=== PATIENT | female | born 2000 | race Hispanic/Latino ===

== ENCOUNTER → 2024-05-12 | Outpatient (CLI) | payer SELFPAY | LOC: M RAD 12:29 | PROVIDERS: ATTEND Physician Assistant Medical | DX: R10.9 Unspecified abdominal pain (principal) ==

== ENCOUNTER 2024-06-15 07:01 | Day surgery (SDC) | payer MEDICAID, SELFPAY ==
[~2024-06-15] VITALS: Ht 154.9 cm; Wt 56.0 kg
[2024-06-15 08:36] LABS: BASO % 0.3 % (0.0-1.0); EOS # 0.1 10^3/uL (0.0-0.5); EOS % 0.7 % (0.0-3.0); HEMATOCRIT 38.5 % (36.0-47.0); LYMPH # 1.8 10^3/uL (1.5-5.0); LYMPH % 23.4 % (24.0-44.0); MEAN CORPUSCULAR HEMOGLOBIN 29.9 pg (27.0-33.0); MEAN CORPUSCULAR HGB CONC 33.8 g/dl (32.0-36.5); MEAN CORPUSCULAR VOLUME 88.5 fl (80.0-96.0); MONO # 0.6 10^3/uL (0.0-0.8); MONO % 8.2 % (2.0-8.0); NEUTROPHILS # 5.1 10^3/uL (1.5-8.5); PLATELET COUNT, AUTOMATED 346 10^3/uL (150-450); RED BLOOD COUNT 4.35 10^6/uL (4.00-5.40); WHITE BLOOD COUNT 7.7 10^3/uL (4.0-10.0)
[2024-06-15] MEDS: MORPHINE 2 MG/ML 1ML VIAL IV ONE (08:36)
[2024-06-15] MEDS ORDERED: HOME MED LIST COMPLETE! XX SCH (09:50)
[2024-06-15] MEDS ORDERED: MIDAZOLAM INJ 2MG/2ML VIAL As Ordered ONE (11:40)
[2024-06-15] MEDS ORDERED: KETOROLAC 60MG 2ML VIAL As Ordered ONE (11:40)
[2024-06-15] MEDS ORDERED: fentaNYL 100 MCG/2 ML INJECTION As Ordered ONE (11:40)
[2024-06-15] MEDS ORDERED: ONDANSETRON 4MG 2ML VIAL As Ordered ONE (11:40)
[2024-06-15] MEDS ORDERED: LIDOCAINE 2% 100MG/5ML SDV (FOR ANES.) As Ordered ONE (11:40)
[2024-06-15] MEDS ORDERED: propofoL 200 MG/20 ML VIAL As Ordered ONE (11:40)
[2024-06-15] MEDS ORDERED: ROCURONIUM BROMIDE 50MG/5ML VIAL As Ordered ONE (11:40)
[2024-06-15] MEDS ORDERED: SUGAMMADEX SODIUM 500 MG/5 ML VIAL (BRIDION) As Ordered ONE (11:40)
[2024-06-15] MEDS ORDERED: fentaNYL 100 MCG/2 ML INJECTION IV PRN (14:00)
[2024-06-15] MEDS ORDERED: oxyCODONE 5MG TAB PO PRN (14:00)
[2024-06-15] MEDS ORDERED: ONDANSETRON 4MG 2ML VIAL IV PRN (14:00)
[2024-06-15] MEDS ORDERED: LR 1,000 ML IV SCH ×2 (14:00→16:05)
[2024-06-15] MEDS ORDERED: HYDROMORPHONE HCL 0.5 MG/ 0.5 ML SYRINGE IV PRN (14:00)
[2024-06-15] MEDS ORDERED: METOCLOPRAMIDE INJ 10MG/2ML VIAL IV PRN (14:00)
[2024-06-15 14:51] VITALS: BP 142/76; TEMP 97.9; O2SAT 98
[2024-06-15] MEDS ORDERED: PERCOCET 5MG/325MG TAB PO PRN (16:05)
== END 2024-06-15 15:28 | disposition home or self-care (01) ==
LOC: M ED 07:01 → M SDC 11:38
PROVIDERS: ATTEND Specialist
DX: O00.90 Unspecified ectopic pregnancy without intrauterine pregnancy (principal)
CPT/HCPCS: 59151; 76801; 76817; 84702; 85025; 86850; 86900; 86901; 87486; 87581; 87633; 87798; 88305; 93976; 96374; 99284; J0665; J1100; J1885; J2250; J2405; J3010

== ENCOUNTER 2024-06-18 18:45 | Emergency (ER) | payer MEDICAID ==
[~2024-06-18] VITALS: Ht 154.9 cm; Wt 56.4 kg
[2024-06-18] MEDS ORDERED: ISOVUE-370 76% 100ML VIAL As Ordered ONE (20:34)
[2024-06-18 20:42] LABS: BASO % 0.5 % (0.0-1.0); EOS # 0.1 10^3/uL (0.0-0.5); EOS % 1.7 % (0.0-3.0); HEMATOCRIT 37.2 % (36.0-47.0); HEMOGLOBIN 12.4 g/dl (12.0-15.5); LYMPH # 2.8 10^3/uL (1.5-5.0); LYMPH % 33.3 % (24.0-44.0); MEAN CORPUSCULAR HEMOGLOBIN 29.4 pg (27.0-33.0); MEAN CORPUSCULAR HGB CONC 33.3 g/dl (32.0-36.5); MEAN CORPUSCULAR VOLUME 88.2 fl (80.0-96.0); MONO # 0.9 10^3/uL (0.0-0.8); MONO % 10.9 % (2.0-8.0); NEUTROPHILS # 4.5 10^3/uL (1.5-8.5); NEUTROPHILS % 53.2 % (36.0-66.0); PLATELET COUNT, AUTOMATED 367 10^3/uL (150-450); RED BLOOD COUNT 4.22 10^6/uL (4.00-5.40); WHITE BLOOD COUNT 8.5 10^3/uL (4.0-10.0)
[2024-06-18] MEDS: NS 1,000 ML IV ONE (20:59)
[2024-06-18] MEDS: KETOROLAC 30 MG/ML 1ML VIAL IV ONE (21:00)
[2024-06-18 21:10] LABS: ALBUMIN 3.4 G/DL (3.2-5.2); ALKALINE PHOSPHATASE 75 U/L (46-116); ALT/SGPT 20 U/L (7.0-40); AST/SGOT < 8 U/L (<34); BILIRUBIN,DIRECT < 0.1 MG/DL (<0.4); BILIRUBIN,TOTAL 0.3 MG/DL (0.3-1.2); TOTAL PROTEIN 6.9 G/DL (5.7-8.2)
[2024-06-19 00:23] VITALS: BP 110/53; TEMP 98.8; O2SAT 100
== END 2024-06-19 00:24 | disposition home or self-care (01) ==
LOC: M ED 18:45
DX: G89.18 Other acute postprocedural pain (principal); K76.89 Other specified diseases of liver; N20.0 Calculus of kidney
CPT/HCPCS: 74177; 80047; 80076; 81001; 85025; 96374; 99284; J1885; Q9967

== ENCOUNTER → 2024-08-08 | Outpatient (CLI) | payer MEDICAID | LOC: M PLALAB 14:32 | PROVIDERS: ATTEND Specialist | DX: N91.2 Amenorrhea, unspecified (principal) ==

== ENCOUNTER → 2024-08-10 | Outpatient (CLI) | payer OTHER | LOC: M PLALAB 13:26 | PROVIDERS: ATTEND Specialist | DX: N92.6 Irregular menstruation, unspecified (principal) ==

== ENCOUNTER 2024-11-29 22:24 | Emergency (ER) | payer BC, OTHER ==
[~2024-11-29] VITALS: Ht 154.9 cm; Wt 62.2 kg
[2024-11-29 23:06] LABS: BASO % 0.2 % (0.0-1.0); EOS # 0.2 10^3/uL (0.0-0.5); EOS % 1.3 % (0.0-3.0); HEMATOCRIT 34.4 % (36.0-47.0); HEMOGLOBIN 11.7 g/dl (12.0-15.5); LYMPH # 3.5 10^3/uL (1.5-5.0); LYMPH % 24.8 % (24.0-44.0); MEAN CORPUSCULAR HEMOGLOBIN 29.8 pg (27.0-33.0); MEAN CORPUSCULAR VOLUME 87.8 fl (80.0-96.0); MONO % 6.8 % (2.0-8.0); NEUTROPHILS # 9.5 10^3/uL (1.5-8.5); NEUTROPHILS % 66.5 % (36.0-66.0); PLATELET COUNT, AUTOMATED 351 10^3/uL (150-450); RED BLOOD COUNT 3.92 10^6/uL (4.00-5.40); WHITE BLOOD COUNT 14.2 10^3/uL (4.0-10.0)
[2024-11-29 23:23] LABS: BLOOD UREA NITROGEN 9 MG/DL (9-23); CALCIUM LEVEL 8.9 MG/DL (8.5-10.1); CARBON DIOXIDE LEVEL 25 MMOL/L (20-31); CHLORIDE LEVEL 104 MMOL/L (98-107); CREATININE FOR GFR 0.42 MG/DL (0.55-1.30); GLOMERULAR FILTRATION RATE > 60.0 (>60); GLUCOSE, FASTING 83 MG/DL (60-100); POTASSIUM SERUM 3.7 MMOL/L (3.5-5.1); SODIUM LEVEL 137 MMOL/L (136-145)
[2024-11-29 23:28] LABS: AMORPHOUS SEDIMENT SMALL (NEGATIVE); APPEARANCE, URINE CLEAR (CLEAR); BACTERIA, URINE AUTO NEGATIVE (NEGATIVE); BILIRUBIN, URINE AUTO NEGATIVE (NEGATIVE); BLOOD, URINE BLOOD 1+ (NEGATIVE); COLOR, URINE STRAW (YELLOW); GLUCOSE, URINE (UA) AUTO NEGATIVE (NEGATIVE); KETONE, URINE AUTO NEGATIVE (NEGATIVE); LEUKOCYTE ESTERASE, URINE AUTO NEGATIVE (NEGATIVE); NITRITE, URINE AUTO NEGATIVE (NEGATIVE); PROTEIN, URINE AUTO NEGATIVE (NEGATIVE); RBC, URINE AUTO 1 /HPF (0-3); SPECIFIC GRAVITY URINE AUTO 1.009 (1.002-1.035); SQUAMOUS EPITHELIAL CELL UR AU 3 /HPF (0-6); UROBILINOGEN, URINE AUTO 0.2 mg/dL (0.0-2.0); WBC, URINE AUTO 1 /HPF (0-3)
[2024-11-30 01:21] VITALS: BP 108/53; TEMP 98.1; O2SAT 99
== END 2024-11-30 01:22 | disposition home or self-care (01) ==
LOC: M ED 22:24
DX: O46.8X1 Other antepartum hemorrhage, first trimester (principal); O26.851 Spotting complicating pregnancy, first trimester; Z3A.08 8 weeks gestation of pregnancy

== ENCOUNTER → 2024-12-25 | Outpatient (CLI) | payer BC, OTHER | LOC: M PLALAB 10:13 | PROVIDERS: ATTEND Specialist | DX: Z34.82 Encounter for supervision of other normal pregnancy, second trimester (principal) ==

== ENCOUNTER → 2024-12-25 | Outpatient (CLI) | payer OTHER ==
[2024-12-25 14:13] LABS: HEMOGLOBIN 12.3 g/dl (12.0-15.5); MEAN CORPUSCULAR HEMOGLOBIN 29.6 pg (27.0-33.0); MEAN CORPUSCULAR HGB CONC 33.2 g/dl (32.0-36.5); MEAN CORPUSCULAR VOLUME 89.2 fl (80.0-96.0); PLATELET COUNT, AUTOMATED 369 10^3/uL (150-450); RED BLOOD COUNT 4.15 10^6/uL (4.00-5.40); WHITE BLOOD COUNT 9.1 10^3/uL (4.0-10.0)
[2024-12-25 15:08] LABS: Trichomonas vaginalis (AMP) NOT DETECTED (NEGATIVE)
[2024-12-25 15:16] LABS: HIV 1&2 SCREEN NEGATIVE (NEGATIVE)
[2024-12-25 15:25] LABS: HEPATITIS C VIRUS ABY INDEX 0.04 INDEX (<0.8)
[2024-12-25 15:31] LABS: GC DNA AMPLIFICATION NEGATIVE (NEGATIVE)
== END ==
LOC: M PLALAB 09:28
PROVIDERS: ATTEND Specialist
DX: Z34.81 Encounter for supervision of other normal pregnancy, first trimester (principal)

== ENCOUNTER → 2025-03-21 | Outpatient (CLI) | payer OTHER ==
[~2025-03-21] MED LIST: PRENTAB9 PO
== END ==
LOC: M RAD 06:57
PROVIDERS: ATTEND Nurse Practitioner Family
DX: Z34.80 Encounter for supervision of other normal pregnancy, unspecified trimester (principal)

== ENCOUNTER → 2025-04-19 | Outpatient (CLI) | payer OTHER ==
[2025-04-19 13:30] LABS: PLATELET COUNT, AUTOMATED 363 10^3/uL (150-450)
[2025-04-19 13:36] LABS: GLUCOSE CHALLENGE TEST 1 HOUR 170 MG/DL (LESS THAN 140)
[2025-04-19 14:06] LABS: HIV 1&2 SCREEN NEGATIVE (NEGATIVE)
[2025-04-19 14:14] LABS: HEPATITIS C VIRUS ABY INDEX < 0.02 INDEX (<0.8)
[2025-04-19 14:42] LABS: Trichomonas vaginalis (AMP) NOT DETECTED (NEGATIVE)
[2025-04-19 15:06] LABS: GC DNA AMPLIFICATION NEGATIVE (NEGATIVE)
== END ==
LOC: M PLALAB 09:47
PROVIDERS: ATTEND Nurse Practitioner Family
DX: Z34.82 Encounter for supervision of other normal pregnancy, second trimester (principal)

== ENCOUNTER → 2025-04-23 | Outpatient (CLI) | payer OTHER | LOC: M LAB 06:44 | PROVIDERS: ATTEND Nurse Practitioner Family | DX: O24.419 Gestational diabetes mellitus in pregnancy, unspecified control (principal); Z3A.00 Weeks of gestation of pregnancy not specified ==

== ENCOUNTER 2025-05-09 07:00 | Emergency (ER) | payer OTHER | END 2025-05-09 07:04 | disposition admitted as inpatient to this hospital (09) | LOC: M ED 07:00 | DX: Z53.21 Procedure and treatment not carried out due to patient leaving prior to being seen by health care provider (principal) ==

== ENCOUNTER 2025-05-09 07:09 | Outpatient (CLI) | payer OTHER ==
[~2025-05-09] VITALS: Ht 154.9 cm; Wt 71.3 kg
[2025-05-09 07:30] VITALS: BP 125/81; O2SAT 99
[2025-05-09] MEDS ORDERED: HOME MED LIST COMPLETE! XX SCH (07:35)
[2025-05-09 08:40] VITALS: BP 110/56
[2025-05-09 10:40] LABS: Trichomonas vaginalis (AMP) NOT DETECTED (NEGATIVE)
[2025-05-09 11:04] LABS: GC DNA AMPLIFICATION NEGATIVE (NEGATIVE)
== END 2025-05-09 08:49 | disposition home or self-care (01) ==
LOC: M LDO 07:09
PROVIDERS: ATTEND Advanced Practice Midwife
DX: O26.893 Other specified pregnancy related conditions, third trimester (principal); O24.410 Gestational diabetes mellitus in pregnancy, diet controlled; N89.8 Other specified noninflammatory disorders of vagina; Z3A.32 32 weeks gestation of pregnancy
CPT/HCPCS: 59025; 87661; 87810; 87850; G0463

== ENCOUNTER 2025-05-21 19:52 | Inpatient (IN) | payer OTHER ==
[2025-05-21] VITALS (9 sets, daily range): BP systolic 113–130; BP diastolic 72–83; O2SAT 99
[2025-05-21] MEDS ORDERED: OXYTOCIN 30UNITS IN 0.9% NaCl 500ML IV BAG As Ordered ONE (20:06)
[2025-05-21] MEDS ORDERED: CARBOPROST TROMETHAMINE 250 MCG/ML AMP IM PRN (20:10)
[2025-05-21] MEDS ORDERED: TRANEXAMIC ACID INJection 1,000 MG in NS 100 ML IV PRN (20:10)
[2025-05-21] MEDS ORDERED: LIDOCAINE 1% MDV 20 ML VIAL As Ordered ONE (20:10)
[2025-05-21] MEDS ORDERED: METHYLERGONOVINE MALEATE 0.2 MG/ML 1 ML VIAL IM PRN (20:10)
[2025-05-21] MEDS: LIDOCAINE 1% MDV 20 ML VIAL INFIL PRN (20:14)
[2025-05-21] MEDS: OXYTOCIN DRIP 30 UNITS in IV 1 EA IV PRN (20:14)
[2025-05-21] MEDS: AMPICILLIN SOD/SULBACTAM SOD 3 GM in DEXTROSE 5% (D5W) MINI-BAG PLU 100 ML IV ONE (20:26)
[2025-05-21 20:39] LABS: PLATELET COUNT, AUTOMATED 339 10^3/uL (150-450)
[2025-05-21 21:25] LABS: HIV 1&2 SCREEN NEGATIVE (NEGATIVE)
[2025-05-21 21:33] LABS: HEPATITIS C VIRUS ABY INDEX < 0.02 INDEX (<0.8)
[2025-05-21] MEDS ORDERED: IBUPROFEN 600 MG TAB PO PRN (21:35)
[2025-05-21] MEDS ORDERED: ANUSOL HC CREAM 30 GM TOP PRN (21:35)
[2025-05-21] MEDS ORDERED: ACETAMINOPHEN 500 MG TAB PO PRN (21:35)
[2025-05-21] MEDS ORDERED: DOCUSATE SODIUM 100 MG CAPSULE PO PRN (21:35)
[2025-05-21] MEDS ORDERED: IBUPROFEN 800 MG TAB PO PRN (21:35)
[2025-05-21] MEDS ORDERED: ACETAMINOPHEN 325 MG TAB PO PRN (21:35)
[2025-05-21] MEDS ORDERED: MOM 30 ML SUSPENSION UDC PO PRN (21:35)
[2025-05-21] MEDS ORDERED: RHOGAM 300MCG (1500IU) INJ IM SCH (21:35)
[2025-05-22 06:00] VITALS: BP 94/52; O2SAT 98
[2025-05-22] MEDS: DIBUCAINE 1% OINTMENT 30 GM TOP PRN (07:47)
[2025-05-22] MEDS: PRENATAL VITAMINS CHEWABLE TABLET PO SCH (07:47)
[2025-05-22 18:00] VITALS: BP 113/56; O2SAT 99
[2025-05-23 06:00] VITALS: BP 106/54; O2SAT 98
[2025-05-23] MEDS: MEASLES,MUMPS,RUBELLA VACCINE INJ (MMR-II) SC.IMMUN ONE (09:00)
[2025-05-23] MEDS: FLUZONE VACCINE TRIVALENT PF(25-26) 0.5ML SYRINGE IM.IMMUN ONE (10:09)
== END 2025-05-23 14:10 | disposition home or self-care (01) | DRG 776 ==
LOC: M LDI 19:52 → M OBS 21:55
PROVIDERS: ADMIT Advanced Practice Midwife; ATTEND Advanced Practice Midwife
PROC: 0UC97ZZ Extirpation of Matter from Uterus, Via Natural or Artificial Opening (ICD-10-PCS; principal; 2025-05-21)
DX: O73.1 Retained portions of placenta and membranes, without hemorrhage (principal)

== ENCOUNTER 2025-06-18 03:30 | Emergency (ER) | payer OTHER ==
[~2025-06-18] VITALS: Ht 165.1 cm; Wt 66.8 kg
[2025-06-18 04:20] LABS: BASO # 0.1 10^3/uL (0.0-0.2); BASO % 0.5 % (0.0-1.0); EOS # 0.5 10^3/uL (0.0-0.5); EOS % 4.3 % (0.0-3.0); LYMPH # 3.1 10^3/uL (1.5-5.0); LYMPH % 28.2 % (24.0-44.0); MONO # 0.7 10^3/uL (0.0-0.8); MONO % 6.4 % (2.0-8.0); NEUTROPHILS # 6.5 10^3/uL (1.5-8.5); NEUTROPHILS % 60.1 % (36.0-66.0); PLATELET COUNT, AUTOMATED 448 10^3/uL (150-450)
[2025-06-18 04:28] LABS: KETONE, URINE AUTO RFX NEGATIVE (NEGATIVE); MUCUS, URINE RFX SMALL (NEGATIVE); NITRITE, URINE AUTO RFX NEGATIVE (NEGATIVE); RBC, URINE AUTO RFX 1 /HPF (0-3); SQUAM EPITHELIAL CELL UR AURFX 0 /HPF (0-6); WBC, URINE AUTO RFX 1 /HPF (0-3)
[2025-06-18 04:29] LABS: LEUKOCYTE ESTERASE UR AUTO RFX TRACE (NEGATIVE)
[2025-06-18] MEDS: NS (Normal Saline) 0.9% 1,000 ML IV ONE (04:41)
[2025-06-18] MEDS: KETOROLAC 30 MG/ML 1 ML VIAL IV ONE (04:41)
[2025-06-18] MEDS: ONDANSETRON 4MG 2ML VIAL IV ONE (04:41)
[2025-06-18 04:58] LABS: ALT/SGPT 29 U/L (7.0-40); AST/SGOT 32 U/L (<34); CALCIUM LEVEL 9.0 MG/DL (8.5-10.1); CARBON DIOXIDE LEVEL 26 MMOL/L (20-31); CHLORIDE LEVEL 106 MMOL/L (98-107); CREATININE FOR GFR 0.54 MG/DL (0.55-1.30); GLOMERULAR FILTRATION RATE > 90.0 (>60); POTASSIUM SERUM 4.1 MMOL/L (3.5-5.1); SODIUM LEVEL 142 MMOL/L (136-145)
[2025-06-18 06:45] VITALS: BP 105/62; TEMP 97.9; O2SAT 98
[2025-06-18] MEDS ORDERED: NAPR-837 PO (06:53)
== END 2025-06-18 07:18 | disposition home or self-care (01) ==
LOC: M ED 03:30
DX: R10.9 Unspecified abdominal pain (principal); K76.89 Other specified diseases of liver; Z79.899 Other long term (current) drug therapy; Z79.810 Long term (current) use of selective estrogen receptor modulators (SERMs)
CPT/HCPCS: 74176; 80048; 80076; 81001; 83605; 83690; 85025; 87086; 93041; 96361; 96374; 99284; J1885; J2405

== ENCOUNTER 2025-08-29 17:08 | Emergency (ER) | payer OTHER ==
[~2025-08-29] VITALS: Ht 154.9 cm; Wt 62.5 kg
[~2025-08-29 17:08] MED LIST changes: +NAPR-837 PO
[2025-08-29 17:12] VITALS: TEMP 97
[2025-08-29] MEDS ORDERED: IBUP200C25 PO (17:18)
[2025-08-29 17:38] LABS: BASO # 0.0 10^3/uL (0.0-0.2); BASO % 0.3 % (0.0-1.0); EOS # 0.2 10^3/uL (0.0-0.5); EOS % 1.8 % (0.0-3.0); LYMPH # 2.8 10^3/uL (1.5-5.0); LYMPH % 29.6 % (24.0-44.0); MONO # 0.7 10^3/uL (0.0-0.8); MONO % 6.9 % (2.0-8.0); NEUTROPHILS # 5.8 10^3/uL (1.5-8.5); NEUTROPHILS % 61.2 % (36.0-66.0); PLATELET COUNT, AUTOMATED 460 10^3/uL (150-450)
[2025-08-29 18:03] LABS: CK-MB VALUE MASS < 1.0 NG/ML (<3.6)
[2025-08-29 18:05] LABS: CALCIUM LEVEL 8.3 MG/DL (8.5-10.1); CARBON DIOXIDE LEVEL 27 MMOL/L (20-31); CHLORIDE LEVEL 109 MMOL/L (98-107); CREATININE FOR GFR 0.57 MG/DL (0.55-1.30); GLOMERULAR FILTRATION RATE > 90.0 (>60); POTASSIUM SERUM 4.0 MMOL/L (3.5-5.1); SODIUM LEVEL 145 MMOL/L (136-145)
[2025-08-29 18:08] LABS: HCG, SERUM QUANTITATIVE < 2.6 MIU/ML (<4.2)
[2025-08-29 18:13] LABS: CPK CREATINE PHOSPHOKINASE 63 U/L (34-145)
[2025-08-29 18:15] VITALS: BP 116/65
[2025-08-29] MEDS ORDERED: ISOVUE-370 76% 100 ML VIAL As Ordered ONE (18:25)
[2025-08-29 19:15] VITALS: O2SAT 99
== END 2025-08-29 19:20 | disposition home or self-care (01) ==
LOC: M ED 17:08
DX: R07.9 Chest pain, unspecified (principal); Z79.1 Long term (current) use of non-steroidal anti-inflammatories (NSAID); Z79.810 Long term (current) use of selective estrogen receptor modulators (SERMs)
CPT/HCPCS: 36415; 71045; 71275; 80048; 82550; 82553; 84484; 84702; 85025; 85379; 86850; 86900; 86901; 87486; 87581; 87633; 87798; 93005; 93041; 94760; 99285; Q9967